=== PATIENT | female | born 1995 | race Caucasian/White ===

== ENCOUNTER 2019-03-04 08:59 | Day surgery (SDC) | payer OTHER ==
[2019-03-02 15:07] VITALS: BP 137/69
[2019-03-02 15:12] LABS: BASOPHILS % (AUTO) 0.6 % (0.0-5.0); EOSINOPHILS % (AUTO) 0.8 % (0.0-8.0); HEMATOCRIT 40.3 % (36-48); LYMPHOCYTES % (AUTO) 28.3 % (21.0-51.0); MEAN CORPUSCULAR HEMOGLOBIN 29.7 pg (27.0-33.0); MEAN CORPUSCULAR HGB CONC 33.2 g/dL (32.0-36.0); MEAN CORPUSCULAR VOLUME 89.5 fL (79-99); MONOCYTES % (AUTO) 6.4 % (3.0-13.0); NEUTROPHILS % (AUTO) 63.9 % (40.0-77.0); PLATELET COUNT (AUTO) 347 K/uL (130-400); RED CELL DISTRIBUTION WIDTH 13.7 % (11.0-15.5); WHITE BLOOD COUNT (AUTO) 6.1 K/uL (4.8-10.8)
[2019-03-04] VITALS (13 sets, daily range): BP systolic 85–121; BP diastolic 40–73
[~2019-03-04] VITALS: Ht 180.3 cm; Wt 70.6 kg
[~2019-03-04 08:59] MED LIST: MYLANTA PO; NITR100C9 PO; NORG1TAB12 PO
[2019-03-04] MEDS ORDERED: MIDAZOLAM HCL 1 MG/ML 2ML VIAL ONE (09:19)
[2019-03-04] MEDS ORDERED: LIDOCAINE HCL 4% LTA SOL 4 ML VIAL ONE (09:19)
[2019-03-04] MEDS ORDERED: PROPOFOL 10 MG/ML 20ML VIAL IV ONE (09:19)
[2019-03-04] MEDS ORDERED: FENTANYL CITRATE PF 50 MCG/1 ML 2ML VIAL ONE (09:20)
[2019-03-04] MEDS ORDERED: ROCURONIUM 10MG/1ML SYR 10 MG/ML ML ONE (09:20)
[2019-03-04] MEDS: CALDOLOR 800MG+NS 250ML 250 ML IV SCH ×2 (10:15→11:30)
[2019-03-04] MEDS: LACTATED RINGERS 1000ML 1,000 ML IV SCH ×2 (10:29→11:55)
[2019-03-04] MEDS ORDERED: DEXAMETHASONE SOD PHOSPHATE 4 MG/ML 1ML VIAL ONE (10:57)
[2019-03-04] MEDS ORDERED: ONDANSETRON HCL 4 MG/2 ML VIAL ONE (10:57)
[2019-03-04] MEDS ORDERED: GLYCOPYRROLATE 1 MG/5 ML SYRINGE ONE (11:34)
[2019-03-04] MEDS ORDERED: NEOSTIGMINE 5MG/5ML SYR IV ONE (11:34)
[2019-03-04] MEDS ORDERED: MEPERIDINE-PF 25 MG/ML SYG ONE ×2 (12:01→12:17)
--- NOTE | 2019-03-04 13:25 | NUR ---
PT ASSISTED UP TO DRESS UP, ABDOMINAL SITE SHOWS NO ACTIVE BLEEDING, VAGINAL BLEEDING NONE FEMININE PAT DRY.
[2019-03-04] MEDS ORDERED: BUPIVACAINE/PF 0.5% 30ML VIAL ONE (14:44)
== END 2019-03-04 13:40 | disposition home or self-care (01) ==
LOC: DAH 08:59
DX: N94.6 Dysmenorrhea, unspecified (principal); N94.9 Unspecified condition associated with female genital organs and menstrual cycle; K21.9 Gastro-esophageal reflux disease without esophagitis; Z79.899 Other long term (current) drug therapy; Z72.89 Other problems related to lifestyle
CPT/HCPCS: 36415; 49320; 84703; 85025; 86850; 86900; 86901; 96365; A4215; A4351; A4649; A4930 ×2; C1769 ×2; G0168; J1100; J1741; J2175 ×2; J2250; J2405; J2704; J2710; J3010; J3490 ×2; J7030; J7120 ×2